=== PATIENT | female | born 1995 | race Caucasian/White ===

== ENCOUNTER 2016-11-24 16:50 | Emergency (ER) | payer MEDICAID ==
[2016-11-24 17:07] VITALS: BP 129/90
[2016-11-24] MEDS ORDERED: CLINDAMYCIN 150 MG CAPSULE PO STA (17:30)
[2016-11-24] MEDS ORDERED: HYDROcod/ACETAM 5/325 MG TABLET PO STA (17:30)
--- NOTE | 2016-11-24 17:33 | ED Physician Documentation ---
PD HPI HEENT - Stated complaint Stated Complaint: JAW PX - Chief complaint Chief Complaint: Heent - History obtained from History obtained from: Patient - History of Present Illness Timing - onset: Other (1 week increasing pain from R maxillary premolar with mild facial swelling. No fevers, no poss pregn.) Review of Systems Constitutional: denies: Fever, Chills Ears: denies: Loss of hearing, Ear pain Nose: denies: Rhinorrhea / runny nose Throat: reports: Dental pain / toothache Cardiac: denies: Chest pain / pressure, Palpitations PD PAST MEDICAL HISTORY - Past Medical History GI: Hepatitis - Past Surgical History Past Surgical History: No - Present Medications Home Medications: Ambulatory Orders Medication Instructions Recorded Confirmed Clindamycin [Cleocin] 300 mg PO Q6H 10 Days 11/24/16 HYDROcod/ACETAM 5/325 [[place] 5/325] 1 - 2 ea PO Q6H PRN #10 tablet 11/24/16 - Allergies Allergies/Adverse Reactions: Allergies Allergy/AdvReac Type Severity Reaction Status Date / Time No Known Drug Allergies Allergy Verified 04/18/13 23:47 - Social History Does the pt smoke?: Yes Smoking Status: Current every day smoker Does the pt drink ETOH?: Yes Does the pt have substance abuse?: Yes - Immunizations Immunizations are current?: Yes - POLST Patient has POLST: No PD ED PE NORMAL - Vitals Vital signs reviewed: Yes - General General: Alert and oriented X 3, No acute distress - HEENT HEENT: Other (Tender R premolar with large cavity and v mild facial swelling, no trismus or sublingual edema.) - Neck Neck: Supple, no meningeal sign, No bony TTP - Neuro Neuro: Alert and oriented X 3, Normal speech - Psych Psych: Normal mood, Normal affect Results - Vitals Vitals: Vital Signs - 24 hr 11/24/16 17:04 Temperature 36.6 C Heart Rate 95 Respiratory 20 Rate Blood Pressure 129/90 H O2 Saturation 97 Oxygen O2 Source Room air Departure - Departure Disposition: 01 Home, Self Care Clinical Impression: Dental abscess Condition: Good Record reviewed to determine appropriate education?: Yes Instructions: ED Abscess Dental Prescriptions: Clindamycin [Cleocin] 300 mg PO Q6H 10 Days HYDROcod/ACETAM 5/325 [[place] 5/325] 1 - 2 ea PO Q6H PRN #10 tablet PRN Reason: Pain Comments: It is very important that you follow up with a dentist. When it comes to dental problems like yours the emergency department can only offer you a short-term solution to your long-term problem. A couple of options for low-cost dental care include: [facility] in [place] call [phone] for an appointment Or [facility] in [place], call [phone] for an appointment Do not drink or drive while on narcotic pain medicine. Note that many narcotic pain relievers also contain tylenol/acetaminophen. Please ensure that your total dose of acetaminophen from all sources does not exceed 3 grams (3000mg) per day. You may constipated on this medication, take a stool softener such as "Colace" twice a day while you are on it. Also recommend a [id number] laxative such as senna or MiraLAX any day that you do not have a bowel movement. If you received narcotic pain medication in the emergency department, do not drive or operate machinery for the next 24 hours. Your blood pressure was elevated today on check in to the emergency department. This does not mean that you have hypertension, it is a common phenomenon to check into the emergency department and have elevated blood pressure. I recommend that you see your primary care physician within the week to have it rechecked when you're feeling better.
[2016-11-24] MEDS ORDERED: CLINDAMYCIN 150 MG CAPSULE PO ONE (17:46)
[2016-11-24] MEDS ORDERED: HYDROcod/ACETAM 5/325 MG TABLET ONE (17:46)
== END 2016-11-24 17:55 | disposition home or self-care (01) ==
LOC: ED 16:50
DX: K04.7 Periapical abscess without sinus (principal); K02.9 Dental caries, unspecified; R03.0 Elevated blood-pressure reading, without diagnosis of hypertension; F17.200 Nicotine dependence, unspecified, uncomplicated
CPT/HCPCS: 99283; A9270

== ENCOUNTER 2018-05-27 14:00 | Emergency (ER) | payer MEDICAID ==
[2018-05-27 14:08] VITALS: BP 98/68
== END 2018-05-27 14:37 | disposition left against medical advice (07) ==
LOC: ED 14:00
DX: Z53.21 Procedure and treatment not carried out due to patient leaving prior to being seen by health care provider (principal)

== ENCOUNTER 2018-05-27 14:43 | Emergency (ER) | payer MEDICAID ==
--- NOTE | 2018-05-27 14:55 | ED Physician Documentation ---
PD HPI HEENT - Stated complaint Stated Complaint: EAR PX - History obtained from History obtained from: Patient - History of Present Illness Timing - onset: How many weeks ago (1) Timing - duration: Weeks (1) Timing - details: Gradual onset, Still present, Waxing and waning Location: Left ear, Sinuses Improves: No: Medication (OTC decongestants and Dayquil.) Associated symptoms: Congestion. No: Fever, Headache, Cough Similar symptoms before: Has not had sx before Review of Systems Constitutional: denies: Fever, Chills Ears: reports: Ear pain (left). denies: Loss of hearing Nose: reports: Rhinorrhea / runny nose, Sinus pressure / pain Throat: denies: Sore throat Respiratory: denies: Cough PD PAST MEDICAL HISTORY - Past Medical History Cardiovascular: None Respiratory: None Neuro: None GI: Hepatitis HEENT: None - Past Surgical History Past Surgical History: No - Present Medications Home Medications: Ambulatory Orders Medication Instructions Recorded Confirmed Cephalexin [Keflex] 500 mg PO TID #20 capsule 05/27/18 Cetirizine [ZyrTEC] 10 mg PO DAILY #15 tablet 05/27/18 Dexamethasone [Decadron] 4 mg PO DAILY #5 tablet 05/27/18 Hydrocodone/Acetaminophen [[place] 1 each PO Q6H PRN #15 tablet 05/27/18 5-325 Tablet] - Allergies Allergies/Adverse Reactions: Allergies Allergy/AdvReac Type Severity Reaction Status Date / Time No Known Drug Allergies Allergy Verified 05/27/18 15:03 - Social History Does the pt smoke?: Yes Smoking Status: Current every day smoker Does the pt drink ETOH?: Yes Does the pt have substance abuse?: Yes - Immunizations Immunizations are current?: Yes - POLST Patient has POLST: No PD ED PE NORMAL - Vitals Vital signs reviewed: Yes - General General: Alert and oriented X 3, No acute distress, Well developed/nourished - HEENT HEENT: Pharynx benign. No: Ears normal (right is okay; left with redness and distorted landmarks. ) - Neck Neck: Supple, no meningeal sign, No adenopathy - Cardiac Cardiac: RRR, No murmur - Respiratory Respiratory: Clear bilaterally - Abdomen Abdomen: Soft, Non tender - Derm Derm: Normal color, Warm and dry, No rash - Neuro Neuro: Alert and oriented X 3, No motor deficit, Normal speech Results - Vitals Vitals: Oxygen O2 Source Room air PD MEDICAL DECISION MAKING - ED course Complexity details: considered differential, d/w patient Departure - Departure Disposition: 01 Home, Self Care Clinical Impression: Acute sinusitis Qualifiers: Sinusitis location: unspecified location Recurrence: non-recurrent Qualified Code(s): J01.90 - Acute sinusitis, unspecified Otitis media Qualifiers: Otitis media type: suppurative Chronicity: acute Laterality: left Recurrence: not specified as recurrent Spontaneous tympanic membrane rupture: with spontaneous rupture Qualified Code(s): H66.012 - Acute suppurative otitis media with spontaneous rupture of ear drum, left ear Condition: Stable Record reviewed to determine appropriate education?: Yes Instructions: ED Otitis Media Acute Adult, ED Sinusitis Abx Tx Prescriptions: Cephalexin [Keflex] 500 mg PO TID #20 capsule Cetirizine [ZyrTEC] 10 mg PO DAILY #15 tablet Dexamethasone [Decadron] 4 mg PO DAILY #5 tablet Hydrocodone/Acetaminophen [[place] 5-325 Tablet] 1 each PO Q6H PRN #15 tablet PRN Reason: Pain Comments: Stay well-hydrated. Drink lots of fluids. You can use some saline nasal spray several times a day to help clear the nasal passages and promote sinus drainage. Decadron anti-inflammatory daily for the next 5 days for reducing swelling and promoting drainage. Cetirizine to decrease fluid congestion. Cephalexin for 4 presume bacterial infection. Add Tylenol or hydrocodone if needed for pain. Recheck if not improving over the next several days to week. Discharge Date/Time: 05/27/18 15:51
[2018-05-27 15:03] VITALS: BP 113/67
[2018-05-27] MEDS ORDERED: cephALEXin 250 MG CAPSULE PO STA (15:12)
[2018-05-27] MEDS ORDERED: HYDROcod/ACETAM 5/325 MG TABLET PO STA (15:12)
[2018-05-27] MEDS ORDERED: DEXAMETHASONE 10 MG/ML VIAL PO STA (15:12)
== END 2018-05-27 15:51 | disposition home or self-care (01) ==
LOC: ED 14:43
DX: J01.90 Acute sinusitis, unspecified (principal); H66.012 Acute suppurative otitis media with spontaneous rupture of ear drum, left ear; F17.200 Nicotine dependence, unspecified, uncomplicated
CPT/HCPCS: 99283; A9270

== ENCOUNTER 2019-01-19 19:27 | Emergency (ER) | payer MEDICAID ==
[2019-01-19 19:57] LABS: BASOPHILS % (AUTO) 0.3 %; EOSINOPHILS # (AUTO) 0.1 10^3/uL (0.0-0.7); EOSINOPHILS % (AUTO) 1.1 %; HGB - HEMOGLOBIN 12.5 g/dL (12.0-16.0); LYMPHOCYTES # (AUTO) 1.8 10^3/uL (1.5-3.5); LYMPHOCYTES % (AUTO) 27.2 %; MEAN CORPUSCULAR HEMOGLOBIN 29.2 pg (27.0-31.0); MEAN CORPUSCULAR HGB CONC 33.8 g/dL (32.0-36.0); MEAN CORPUSCULAR VOLUME 86.4 fL (81.0-99.0); MEAN PLATELET VOLUME 9.5 fL (7.9-10.8); MONOCYTES # (AUTO) 0.3 10^3/uL (0.0-1.0); MONOCYTES % (AUTO) 5.3 %; NEUTROPHILS # (AUTO) 4.2 10^3/uL (1.5-6.6); NEUTROPHILS % (AUTO) 65.9 %; PLT - PLATELET COUNT 260 10^3/uL (130-450); RED BLOOD COUNT 4.28 10^6/uL (4.20-5.40); RED CELL DISTRIBUTION WIDTH 13.6 % (12.0-15.0); WHITE BLOOD COUNT 6.4 x10^3/uL (4.8-10.8)
[2019-01-19 20:15] LABS: ALBUMIN 3.7 g/dL (3.2-5.5); ALBUMIN/GLOBULIN RATIO 0.8 (1.0-2.2); BILIRUBIN,TOTAL 0.4 mg/dL (0.2-1.0); CALCIUM 9.8 mg/dL (8.5-10.3); CREATININE 0.6 mg/dL (0.4-1.0); TOTAL PROTEIN 8.2 g/dL (6.7-8.2)
[2019-01-19 20:19] LABS: MUDS CUTOFF CONCENTRATIONS CUTOFF CONC BELOW:
[2019-01-19 20:21] LABS: BILIRUBIN,URINE NEGATIVE (NEGATIVE); GLUCOSE, URINE (UA) NEGATIVE (NEGATIVE); KETONES,URINE (UA) NEGATIVE (NEGATIVE); LEUKOCYTE ESTERASE, URINE SMALL (NEGATIVE); NITRITE,URINE NEGATIVE (NEGATIVE); OCCULT BLOOD,URINE NEGATIVE (NEGATIVE); PROTEIN,URINE NEGATIVE (NEGATIVE); UROBILINOGEN,URINE 1 (NORMAL) E.U./dL (NORMAL)
[2019-01-19 20:23] LABS: CLARITY,URINE CLOUDY (CLEAR)
[2019-01-19 20:33] LABS: AMPHETAMINE SCREEN,URINE POSITIVE (NEGATIVE); BENZODIAZEPINES SCREEN, URINE NEGATIVE (NEGATIVE); COCAINE SCREEN URINE NEGATIVE (NEGATIVE); METHADONE SCREEN, URINE NEGATIVE (NEGATIVE); METHAMPHETAMINES SCREEN, URINE NEGATIVE (NEGATIVE); OPIATE SCREEN, URINE POSITIVE (NEGATIVE); OXYCODONE SCREEN, URINE NEGATIVE (NEGATIVE); PROPOXYPHENE SCREEN, URINE NEGATIVE (NEGATIVE); TRICYCLIC ANTIDEPRESSANT,URINE NEGATIVE (NEGATIVE)
[2019-01-19 20:34] LABS: BACTERIA,URINE Many /HPF (None Seen); RBC,URINE 0-5 /HPF (0-5); SQUAMOUS EPITHELIAL CELL,UR FEW Squamous (<= Few)
[2019-01-19] MEDS ORDERED: cefTRIAXone 1 GM VIAL IM STA (20:49)
[2019-01-19] MEDS ORDERED: LIDOCAINE 1% 2 ML VIAL MC ONE (20:49)
--- NOTE | 2019-01-19 20:53 | ED Physician Documentation ---
PD HPI FEMALE - Stated complaint Stated Complaint: FEMALE - Chief complaint Chief Complaint: Abd Pain - History obtained from History obtained from: Patient, Family - History of Present Illness Timing - onset: How many days ago (a few days) Timing - duration: Days Timing - details: Gradual onset, Waxing and waning Pain level max: 7 Pain level max: 2 Associated symptoms: Abdominal pain (suprapubic), Dysuria, Urinary frequency. 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), P (1) Recently seen: Not recently seen Review of Systems Ten Systems: 10 systems reviewed and negative Constitutional: denies: Fever, Chills Cardiac: denies: Chest pain / pressure Respiratory: denies: Cough : reports: Dysuria, Frequency, Hesitancy Skin: denies: Rash Musculoskeletal: denies: Neck pain, Back pain Neurologic: denies: Focal weakness, Numbness, Headache PD PAST MEDICAL HISTORY - Past Medical History Past Medical History: Yes Cardiovascular: None Respiratory: None Neuro: None GI: Hepatitis HEENT: None - Past Surgical History Past Surgical History: No - Present Medications Home Medications: Ambulatory Orders Medication Instructions Recorded Confirmed Nitrofurantoin Monohyd/M-Cryst 100 mg PO BID #10 capsule 01/19/19 [Macrobid 100 mg Capsule] Vitamin [Trinatal Rx 1] 1 each PO DAILY #30 tablet 01/19/19 - Allergies Allergies/Adverse Reactions: Allergies Allergy/AdvReac Type Severity Reaction Status Date / Time No Known Drug Allergies Allergy Verified 01/19/19 19:34 - Social History Does the pt smoke?: Yes Smoking Status: Current every day smoker Does the pt drink ETOH?: Yes Does the pt have substance abuse?: Yes - Immunizations Immunizations are current?: Yes - POLST Patient has POLST: No PD ED PE NORMAL - Vitals Vital signs reviewed: Yes - General General: Alert and oriented X 3, No acute distress, Well developed/nourished - HEENT HEENT: PERRL, Moist mucous membranes - Neck Neck: Supple, no meningeal sign - Cardiac Cardiac: RRR, Strong equal pulses - Respiratory Respiratory: No respiratory distress, Clear bilaterally - Abdomen Abdomen: Soft, Non distended, Other (TTP suprapubic without peritoneal signs. ) - Back Back: No CVA TTP, No spinal TTP - Derm Derm: Warm and dry - Extremities Extremities: No edema - Neuro Neuro: Alert and oriented X 3 - Psych Psych: Normal mood, Normal affect Results - Vitals Vitals: Vital Signs - 24 hr 01/19/19 01/19/19 19:29 20:58 Temperature 36.9 C Heart Rate 85 77 Respiratory 16 16 Rate Blood Pressure 114/62 97/67 O2 Saturation 99 98 Oxygen O2 Source Room air - Labs Labs: Laboratory Tests 01/19/19 01/19/19 01/19/19 19:50 19:50 19:50 WBC 6.4 RBC 4.28 Hgb 12.5 Hct 37.0 MCV 86.4 MCH 29.2 MCHC 33.8 RDW 13.6 Plt Count 260 MPV 9.5 Neut # (Auto) 4.2 Lymph # (Auto) 1.8 Norman # (Auto) 0.3 Eos # (Auto) 0.1 Baso # (Auto) 0.0 Absolute Nucleated RBC 0.00 Nucleated RBC % 0.0 Sodium 137 Potassium 3.7 Chloride 101 Carbon Dioxide 24 Anion Gap 12.0 BUN 11 Creatinine 0.6 Estimated GFR (MDRD) 123 Glucose 84 Calcium 9.8 Total Bilirubin 0.4 AST 21 ALT 28 Alkaline Phosphatase 65 Total Protein 8.2 Albumin 3.7 Globulin 4.5 H Albumin/Globulin Ratio 0.8 L Lipase 18 L HCG, Quant 71331.00 Urine Color Urine Clarity Urine pH Ur Specific [place] Urine Protein Urine Glucose (UA) Urine Ketones Urine Occult Blood Urine Nitrite Urine Bilirubin Urine Urobilinogen Ur Leukocyte Esterase Urine RBC Urine WBC Ur Squamous Epith Cells Urine Bacteria Ur Microscopic Review Urine Culture Comments Urine Opiates Screen Ur Oxycodone Screen Urine Methadone Screen Ur Propoxyphene Screen Ur Barbiturates Screen Ur Tricyclics Screen Ur Phencyclidine Scrn Ur Amphetamine Screen U Methamphetamines Scrn U Benzodiazepines Scrn Urine Cocaine Screen U Cannabinoids Screen Blood Type 01/19/19 01/19/19 01/19/19 19:50 19:57 19:57 WBC RBC Hgb Hct MCV MCH MCHC RDW Plt Count MPV Neut # (Auto) Lymph # (Auto) Norman # (Auto) Eos # (Auto) Baso # (Auto) Absolute Nucleated RBC Nucleated RBC % Sodium Potassium Chloride Carbon Dioxide Anion Gap BUN Creatinine Estimated GFR (MDRD) Glucose Calcium Total Bilirubin AST ALT Alkaline Phosphatase Total Protein Albumin Globulin Albumin/Globulin Ratio Lipase HCG, Quant Urine Color YELLOW Urine Clarity CLOUDY Urine pH 6.0 Ur Specific [place] 1.025 Urine Protein NEGATIVE Urine Glucose (UA) NEGATIVE Urine Ketones NEGATIVE Urine Occult Blood NEGATIVE Urine Nitrite NEGATIVE Urine Bilirubin NEGATIVE Urine Urobilinogen 1 (NORMAL) Ur Leukocyte Esterase SMALL H Urine RBC 0-5 Urine WBC >25 H Ur Squamous Epith Cells FEW Squamous Urine Bacteria Many H Ur Microscopic Review INDICATED Urine Culture Comments INDICATED Urine Opiates Screen POSITIVE H Ur Oxycodone Screen NEGATIVE Urine Methadone Screen NEGATIVE Ur Propoxyphene Screen NEGATIVE Ur Barbiturates Screen NEGATIVE Ur Tricyclics Screen NEGATIVE Ur Phencyclidine Scrn NEGATIVE Ur Amphetamine Screen POSITIVE H U Methamphetamines Scrn NEGATIVE U Benzodiazepines Scrn NEGATIVE Urine Cocaine Screen NEGATIVE U Cannabinoids Screen NEGATIVE Blood Type O NEGATIVE PD MEDICAL DECISION MAKING - ED course Complexity details: reviewed results, re-evaluated patient, considered differential, d/w patient ED course: 23-year-old female with a UTI. She is also . Bedside ultrasound reveals a intrauterine with estimated gestational age of approximately 11 weeks and 6 days. heart rate of 154 bpm. Good movement. Images shown to the patient. Given Rocephin for the UTI and will place on oral antibiotics for home. We will also prescribe vitamins and follow-up closely with OB. Patient counseled regarding signs and symptoms for which I believe and urgent re-evaluation would be necessary. Patient with good understanding of and agreement to plan and is comfortable going home at this time This document was made in part using voice recognition software. While efforts are made to proofread this document, sound alike and grammatical errors may occur. Departure - Departure Disposition: 01 Home, Self Care Clinical Impression: 12 weeks gestation of UTI (urinary tract infection) Qualifiers: Urinary tract infection type: acute cystitis Hematuria presence: without hematuria Qualified Code(s): N30.00 - Acute cystitis without hematuria Condition: Good Instructions: ED Care, ED UTI Cystitis Female, ED Preg Established Normal Sxs Follow-Up: Darrius Arnold MD [Provider Admit Priv/Credential] - Within 1 week Prescriptions: Nitrofurantoin Monohyd/M-Cryst [Macrobid 100 mg Capsule] 100 mg PO BID #10 capsule Vitamin [Trinatal Rx 1] 1 each PO DAILY #30 tablet Comments: Take all antibiotics until gone. Return if you worsen. Follow-up with obstetrics for further care. Call the clinic for an appointment. Discharge Date/Time: 01/19/19 21:09
[2019-01-19 20:59] VITALS: BP 97/67
== END 2019-01-19 21:09 | disposition home or self-care (01) ==
LOC: ED 19:27
DX: O23.11 Infections of bladder in pregnancy, first trimester (principal); F17.200 Nicotine dependence, unspecified, uncomplicated; Z3A.12 12 weeks gestation of pregnancy
CPT/HCPCS: 36415; 80053; 80306; 81001; 81003; 83690; 84702; 84703; 85025; 86900; 86901; 87086; 87181; 96372; 99283; 99284

== ENCOUNTER 2019-02-05 15:31 | Emergency (ER) | payer MEDICAID ==
[2019-02-05 15:49] VITALS: BP 109/55
== END 2019-02-05 17:04 | disposition left against medical advice (07) ==
LOC: ED 15:31
DX: Z53.21 Procedure and treatment not carried out due to patient leaving prior to being seen by health care provider (principal)

== ENCOUNTER 2019-02-06 08:00 | Outpatient (CLI) | payer MEDICAID ==
[2019-02-06 22:15] LABS: TRICHOMONAS VAGINALIS DNA POSITIVE (NEGATIVE)
== END 2019-02-06 23:59 | disposition home or self-care (01) ==
LOC: LAB.R 08:00
PROVIDERS: ATTEND Obstetrics & Gynecology
DX: Z33.1 Pregnant state, incidental (principal)
CPT/HCPCS: 87086; 87491; 87591; 87661

== ENCOUNTER 2019-02-10 14:48 | Outpatient (CLI) | payer MEDICAID ==
[2019-02-10 15:30] LABS: BASOPHILS % (AUTO) 0.5 %; EOSINOPHILS # (AUTO) 0.1 10^3/uL (0.0-0.7); EOSINOPHILS % (AUTO) 1.5 %; HGB - HEMOGLOBIN 11.4 g/dL (12.0-16.0); LYMPHOCYTES # (AUTO) 1.4 10^3/uL (1.5-3.5); LYMPHOCYTES % (AUTO) 21.5 %; MEAN CORPUSCULAR HGB CONC 33.2 g/dL (32.0-36.0); MEAN CORPUSCULAR VOLUME 90.3 fL (81.0-99.0); MEAN PLATELET VOLUME 10.2 fL (7.9-10.8); MONOCYTES # (AUTO) 0.3 10^3/uL (0.0-1.0); MONOCYTES % (AUTO) 4.2 %; NEUTROPHILS # (AUTO) 4.8 10^3/uL (1.5-6.6); NEUTROPHILS % (AUTO) 71.8 %; PLT - PLATELET COUNT 173 10^3/uL (130-450); RED CELL DISTRIBUTION WIDTH 13.5 % (12.0-15.0); WHITE BLOOD COUNT 6.7 x10^3/uL (4.8-10.8)
[2019-02-11 11:21] LABS: HEPATITIS B SURFACE ANTIGEN NON-REACTIVE (NON-REACTIVE); HEPATITIS C ANTIBODY REACTIVE (NON-REACTIVE)
[2019-02-11 14:31] LABS: HIV AG/AB 4TH GEN NON-REACTIVE (NON-REACTIVE)
[2019-02-13 12:51] LABS: HCV RNA QNT 4.88 Log IU/mL (NOT DETECTED); HCV RNA QUANT RT PCR 75100 IU/mL (NOT DETECTED)
== END 2019-02-10 14:49 | disposition home or self-care (01) ==
LOC: LAB 14:48
PROVIDERS: ATTEND Obstetrics & Gynecology
DX: O99.320 Drug use complicating pregnancy, unspecified trimester (principal); F19.10 Other psychoactive substance abuse, uncomplicated
CPT/HCPCS: 36415; 80306; 81599; 85025; 86592; 86762; 86803; 86850; 86900; 86901; 87086; 87340; 87389; 87491; 87591; 87661

== ENCOUNTER 2019-02-10 17:05 | Outpatient (CLI) | payer MEDICAID ==
[2019-02-10 17:18] LABS: MUDS CUTOFF CONCENTRATIONS CUTOFF CONC BELOW:
[2019-02-10 18:12] LABS: AMPHETAMINE SCREEN,URINE POSITIVE (NEGATIVE); BENZODIAZEPINES SCREEN, URINE NEGATIVE (NEGATIVE); COCAINE SCREEN URINE NEGATIVE (NEGATIVE); METHADONE SCREEN, URINE NEGATIVE (NEGATIVE); METHAMPHETAMINES SCREEN, URINE POSITIVE (NEGATIVE); OPIATE SCREEN, URINE POSITIVE (NEGATIVE); OXYCODONE SCREEN, URINE NEGATIVE (NEGATIVE); PROPOXYPHENE SCREEN, URINE NEGATIVE (NEGATIVE); TRICYCLIC ANTIDEPRESSANT,URINE NEGATIVE (NEGATIVE)
== END 2019-02-10 23:59 | disposition home or self-care (01) ==
LOC: LAB.R 17:05
PROVIDERS: ATTEND Obstetrics & Gynecology
DX: F19.10 Other psychoactive substance abuse, uncomplicated (principal)
CPT/HCPCS: 80306; 81599

== ENCOUNTER 2019-10-19 12:01 | Emergency (ER) | payer MEDICAID ==
[2019-10-19] MEDS ORDERED: metroNIDAZOLE 250 MG TABLET PO STA (12:24)
[2019-10-19] MEDS ORDERED: CLINDAMYCIN 150 MG CAPSULE PO STA (12:24)
--- NOTE | 2019-10-19 12:28 | ED Physician Documentation ---
History of Present Illness - Stated complaint Stated Complaint: SWOLLEN FACE/FEMALE - Chief complaint Chief Complaint: Wound - History obtained from History obtained from: Patient - Additonal information Additional information: Pt comes to the ED for dental infection and STD treatment. Pt states she has a bad tooth, and has not seen a dentist. Yesterday, she began to notice that the L side of her face was "puffy", and that today, it was much worse. Pt states her cheek hurts. No drainage into her mouth. Pt denies fevers or chills. She also states she was dx with trichomoniasis a couple of months ago, but never completed treatment. She states she feels like it is back, and would like to be treated again. She states her boyfriend also thinks he has it. No vaginal pain or itching. Mild vaginal discharge. Review of Systems Ten Systems: 10 systems reviewed and negative Constitutional: reports: Reviewed and negative Eyes: reports: Reviewed and negative Ears: reports: Reviewed and negative Nose: reports: Reviewed and negative Throat: reports: Dental pain / toothache Cardiac: reports: Reviewed and negative Respiratory: reports: Reviewed and negative GI: reports: Reviewed and negative : reports: Discharge Skin: reports: Other (Facial swelling, pain) Musculoskeletal: reports: Reviewed and negative Neurologic: reports: Reviewed and negative Psychiatric: reports: Reviewed and negative Endocrine: reports: Reviewed and negative Immunocompromised: reports: Reviewed and negative PD PAST MEDICAL HISTORY - Past Medical History Cardiovascular: None Respiratory: None Neuro: None GI: Hepatitis HEENT: None - Past Surgical History Past Surgical History: No - Present Medications Home Medications: Ambulatory Orders Medication Instructions Recorded Confirmed Clindamycin HCl [Clindamycin 300MG 300 mg PO Q6H #28 capsule 10/19/19 CAP] metroNIDAZOLE [Flagyl] 500 mg PO BID #20 tablet 10/19/19 - Allergies Allergies/Adverse Reactions: Allergies Allergy/AdvReac Type Severity Reaction Status Date / Time No Known Drug Allergies Allergy Verified 10/19/19 12:07 - Social History Does the pt smoke?: Yes Smoking Status: Current every day smoker Does the pt drink ETOH?: Yes Does the pt have substance abuse?: No - Immunizations Immunizations are current?: Yes - POLST Patient has POLST: No PD ED PE NORMAL - Vitals Vital signs reviewed: Yes - General General: Alert and oriented X 3, No acute distress - HEENT HEENT: Atraumatic, PERRL, EOMI, Moist mucous membranes, Other (Pt has poor L maxillary dentition. She has swelling of the gingival and buccal soft tissues of the area, but not of the palate. No drainage. Mild fluctuance at the apex of the buccal sulcus in the same area. No lingual edema or vocal change. ) - Neck Neck: Supple, no meningeal sign - Cardiac Cardiac: RRR, No murmur - Respiratory Respiratory: Clear bilaterally - Abdomen Abdomen: Normal bowel sounds, Soft, Non tender, Non distended - Derm Derm: Warm and dry, Other (Pt has moderate edema of her L face, involving the medial maxillary area. No induration or fluctuance externally. No extension to neck.) - Extremities Extremities: No deformity - Neuro Neuro: Alert and oriented X 3, Normal speech, Other (grossly normal otherwise) - Psych Psych: Normal mood, Normal affect Results - Vitals Vitals: Oxygen O2 Source Room air PD MEDICAL DECISION MAKING - ED course Complexity details: considered differential, d/w patient ED course: The pt was started on abx for her dental infection and flagyl for her trichomoniasis. Regarding the dental infection, the pt had some fluctance, but with significant soft tissue swelling, which made access to the fluctuant area difficult. I d/w the pt that at this point, I&D would be logistically difficult, and it is probably better to go on abx first. I have advised the pt to apply hot tea bags (as hot as she can stand without burning herself) to the involved area intraorally to help encourage drainage. She should do this at least several times a day, for at least 20 minutes, reheating bag as necessary. Most likely, the abscess will spontaneously drain. If not, use of antibiotics should help bring the swelling down, and abscess will be easier to I&D if needed. I have also instructed the pt to call the dentist's office first thing in the morning to set up a follow-up appt. Regarding the trichomoniasis, pt and boyfriend should take their treatment simultaneously and should not have intercourse until they have both completed treatment. Departure - Departure Disposition: 01 Home, Self Care Clinical Impression: Dental abscess, Trichomoniasis Condition: Stable Instructions: ED Dental Abscess Facial Cellulitis, ED Vaginitis Trichomonas Prescriptions: Clindamycin HCl [Clindamycin 300MG CAP] 300 mg PO Q6H #28 capsule metroNIDAZOLE [Flagyl] 500 mg PO BID #20 tablet Comments: As we have discussed, you should take the antibiotics for your dental Infection every day, as directed. Please do hot packing with a tea bag, as we have discussed, at least several times a day for 20 minutes at a time. Call first thing tomorrow morning to set up dental follow-up. As far as the trichomoniasis, it is not clear whether you actually of trick at this moment or not, since you have no symptoms and your boyfriend has no symptoms. However, if you want to be completely rid of the trichomonas, you should take the Flagyl/metronidazole, as prescribed, and should not have sexual relations for at least 24 hours after starting the medication. Your boyfriend and you should take the medication the same time so you are sure you each getting cleared of infection. Discharge Date/Time: 10/19/19 12:42
[2019-10-19 12:43] VITALS: BP 122/65
== END 2019-10-19 12:42 | disposition home or self-care (01) ==
LOC: ED 12:01
DX: K04.7 Periapical abscess without sinus (principal); A59.9 Trichomoniasis, unspecified; F17.200 Nicotine dependence, unspecified, uncomplicated
CPT/HCPCS: 99282; 99284; A9270

== ENCOUNTER 2020-04-18 17:43 | Emergency (ER) | payer MEDICAID ==
[2020-04-18] MEDS ORDERED: KETOROLAC 30 MG/ML VIAL IVP STA (17:56)
[2020-04-18] MEDS ORDERED: CLINDAMYCIN 600 MG/50 ML 50 ML IV ONE (17:56)
[2020-04-18] MEDS ORDERED: DEXAMETHASONE 10 MG/ML VIAL IVP STA (17:56)
--- NOTE | 2020-04-18 17:59 | ED Physician Documentation ---
PD HPI HEENT - Stated complaint Stated Complaint: MOUTH INFECTION - Chief complaint Chief Complaint: Heent - History obtained from History obtained from: Patient - Additional information Additional information: 25-year-old woman has had worsening dental pain from a right mandibular source for the last week with mild facial swelling and 4 days of trismus. No fevers. No possibility of . She called a few dentist office to try to get an but was unsuccessful. Review of Systems Constitutional: denies: Fever, Chills Nose: denies: Rhinorrhea / runny nose, Congestion Throat: denies: Sore throat Cardiac: denies: Chest pain / pressure, Palpitations Respiratory: denies: Dyspnea, Cough PD PAST MEDICAL HISTORY - Past Medical History Past Medical History: Yes Cardiovascular: None Respiratory: None Neuro: None GI: Hepatitis HEENT: None - Past Surgical History Past Surgical History: No - Present Medications Home Medications: Ambulatory Orders Medication Instructions Recorded Confirmed Hydrocodone/Acetaminophen 1 - 2 tab PO Q6H PRN #15 tablet 04/18/20 [Hydrocodone-Acetamin 5-325 mg] clindamycin HCL [Cleocin HCl] 300 mg PO Q6H #40 capsule 04/18/20 - Allergies Allergies/Adverse Reactions: Allergies Allergy/AdvReac Type Severity Reaction Status Date / Time No Known Drug Allergies Allergy Verified 04/18/20 17:50 - Social History Does the pt smoke?: Yes Smoking Status: Current every day smoker Does the pt drink ETOH?: Yes Does the pt have substance abuse?: No - Immunizations Immunizations are current?: Yes - POLST Patient has POLST: No PD ED PE NORMAL - Vitals Vital signs reviewed: Yes - General General: Alert and oriented X 3, No acute distress - HEENT HEENT: Other (She has generally poor dentition, trismus with about 1 cm of opening between the incisors. No sublingual edema. No obvious gingival abscess but mild facial swelling over the angle of the jaw.) - Neck Neck: Supple, no meningeal sign, No bony TTP - Derm Derm: No rash - Neuro Neuro: Alert and oriented X 3, Normal speech Results - Vitals Vitals: Vital Signs - 24 hr 04/18/20 17:48 Temperature 37 C Heart Rate 103 H Respiratory 18 Rate Blood Pressure 107/69 O2 Saturation 100 Oxygen O2 Source Room air Procedures - General procedure General procedure: She was difficult for IV access, the nurse tried and failed. I placed a long 22-gauge IV in the right deep brachial vein after ChloraPrep using real-time ultrasound guidance which flushed and arie well. PD MEDICAL DECISION MAKING - ED course ED course: 25-year-old woman with a significant dental infection with trismus, no other current signs of Buddy's. Received IV clindamycin in the ER as well as pain control. I put in an online referral to the local oral med maxillofacial surgeon for urgent follow-up. Departure - Departure Disposition: Home, Self Care Clinical Impression: Dental abscess Condition: Good Record reviewed to determine appropriate education?: Yes Instructions: ED Dental Abscess Facial Cellulitis Follow-Up: WILLIAM CORTEZ [Physician No Access] - Tomorrow Prescriptions: clindamycin HCL [Cleocin HCl] 300 mg PO Q6H #40 capsule Hydrocodone/Acetaminophen [Hydrocodone-Acetamin 5-325 mg] 1 - 2 tab PO Q6H PRN #15 tablet PRN Reason: Pain Comments: I put in a referral to Dr. William Cortez, he has an oral maxillofacial surgeon in [place]. You may hear from him tomorrow but I would also call his office in the morning noting that you were in the ER today with a dental abscess and facial cellulitis. Return for new or worsening symptoms. Do not drink or drive while taking narcotic pain medication.
[2020-04-18 19:40] VITALS: BP 105/57
== END 2020-04-18 19:54 | disposition home or self-care (01) ==
LOC: ED 17:43
DX: K04.7 Periapical abscess without sinus (principal); L03.211 Cellulitis of face; F17.200 Nicotine dependence, unspecified, uncomplicated
CPT/HCPCS: 96361; 96374; 96375; 99284

== ENCOUNTER 2020-05-17 19:45 | Emergency (ER) | payer MEDICAID ==
[2020-05-17 20:18] LABS: BILIRUBIN,URINE NEGATIVE (NEGATIVE); GLUCOSE, URINE (UA) NEGATIVE (NEGATIVE); KETONES,URINE (UA) NEGATIVE (NEGATIVE); LEUKOCYTE ESTERASE, URINE NEGATIVE (NEGATIVE); NITRITE,URINE NEGATIVE (NEGATIVE); OCCULT BLOOD,URINE LARGE (NEGATIVE); PH,URINE 5.5 PH (5.0-7.5); PROTEIN,URINE NEGATIVE (NEGATIVE); UROBILINOGEN,URINE 0.2 (NORMAL) E.U./dL (NORMAL)
[2020-05-17 20:19] LABS: CLARITY,URINE HAZY (CLEAR)
[2020-05-17 20:26] LABS: HCG UR QUAL NEGATIVE
[2020-05-17 20:30] LABS: RBC,URINE TNTC /HPF (0-5); SQUAMOUS EPITHELIAL CELL,UR NONE SEEN (<= Few)
[2020-05-17 20:31] LABS: BACTERIA,URINE Few /HPF (None Seen)
--- NOTE | 2020-05-17 20:34 | ED Physician Documentation ---
History of Present Illness - Stated complaint Stated Complaint: FEMALE - Chief complaint Chief Complaint: Abd Pain - History obtained from History obtained from: Patient - History of Present Illness Timing: Today Pain level max: 0 Pain level now: 0 - Additonal information Additional information: 25-year-old female presents to the emergency department stating she is concerned that she might be miscarrying. She has not had a menstrual period since having her daughter about 8 months ago. Today she states she passed a large clot. Has not taken a test. Currently feels normal. No cramping. Nothing makes it better or worse. Review of Systems Constitutional: denies: Fever, Chills Respiratory: denies: Cough GI: denies: Abdominal Pain, Vomiting, Diarrhea Skin: denies: Rash Musculoskeletal: denies: Neck pain, Back pain PD PAST MEDICAL HISTORY - Past Medical History Cardiovascular: None Respiratory: None Neuro: None GI: Hepatitis HEENT: None - Past Surgical History Past Surgical History: No - Present Medications Home Medications: Ambulatory Orders Medication Instructions Recorded Confirmed No Known Home Medications 05/17/20 05/17/20 - Allergies Allergies/Adverse Reactions: Allergies Allergy/AdvReac Type Severity Reaction Status Date / Time No Known Drug Allergies Allergy Verified 05/17/20 19:50 - Social History Does the pt smoke?: Yes Smoking Status: Current every day smoker Does the pt drink ETOH?: No Does the pt have substance abuse?: Yes Substance Use and Type: Heroin - Immunizations Immunizations are current?: Yes - POLST Patient has POLST: No PD ED PE NORMAL - Vitals Vital signs reviewed: Yes - General General: Alert and oriented X 3, No acute distress - HEENT HEENT: Moist mucous membranes - Neck Neck: Supple, no meningeal sign - Cardiac Cardiac: RRR - Respiratory Respiratory: No respiratory distress, Clear bilaterally - Abdomen Abdomen: Soft, Non tender, Non distended - Derm Derm: Warm and dry - Neuro Neuro: Alert and oriented X 3 Results - Vitals Vitals: Vital Signs - 24 hr 05/17/20 19:50 Temperature 36.6 C Heart Rate 96 Respiratory 18 Rate Blood Pressure 134/84 H O2 Saturation 98 Oxygen O2 Source Room air - Labs Labs: Laboratory Tests 05/17/20 20:05 Urine Color YELLOW Urine Clarity HAZY Urine pH 5.5 Ur Specific [place] >=1.030 H Urine Protein NEGATIVE Urine Glucose (UA) NEGATIVE Urine Ketones NEGATIVE Urine Occult Blood LARGE H Urine Nitrite NEGATIVE Urine Bilirubin NEGATIVE Urine Urobilinogen 0.2 (NORMAL) Ur Leukocyte Esterase NEGATIVE Urine RBC TNTC H Urine WBC 0-3 Ur Squamous Epith Cells NONE SEEN Urine Bacteria Few Ur Microscopic Review INDICATED Urine Culture Comments NOT INDICATED Urine HCG, Qual NEGATIVE PD MEDICAL DECISION MAKING - ED course Complexity details: reviewed results, considered differential, d/w patient ED course: States that she is only having minimal bleeding now. hCG is negative. No randi dence of miscarriage. Patient counseled regarding signs and symptoms for which I believe and urgent re-evaluation would be necessary. Patient with good understanding of and agreement to plan and is comfortable going home at this time This document was made in part using voice recognition software. While efforts are made to proofread this document, sound alike and grammatical errors may occur. Departure - Departure Disposition: 01 Home, Self Care Clinical Impression: Dysfunctional uterine bleeding Condition: Good Instructions: ED Bleed Irregular Vaginal Follow-Up: Your,doctor in 1 week [Other] Comments: Your test is negative today. Follow-up with your doctor as needed for further care. Return if you worsen
[2020-05-17 20:48] VITALS: BP 116/74
== END 2020-05-17 20:48 | disposition home or self-care (01) ==
LOC: ED 19:45
DX: N93.8 Other specified abnormal uterine and vaginal bleeding (principal); Z32.02 Encounter for pregnancy test, result negative; F17.200 Nicotine dependence, unspecified, uncomplicated
CPT/HCPCS: 81001; 81003; 81025; 87086; 99283; 99284

== ENCOUNTER 2021-02-21 18:37 | Emergency (ER) | payer MEDICAID ==
[2021-02-21 18:44] VITALS: BP 119/64
== END 2021-02-21 19:37 | disposition left against medical advice (07) ==
LOC: ED 18:37
DX: Z53.21 Procedure and treatment not carried out due to patient leaving prior to being seen by health care provider (principal)
CPT/HCPCS: 87491; 87591; 87661; 87801

== ENCOUNTER 2021-08-08 12:34 | Emergency (ER) | payer MEDICAID ==
[2021-08-08 12:53] VITALS: BP 121/70
--- NOTE | 2021-08-08 12:58 | ED Physician Documentation ---
PD HPI HEENT - Stated complaint Stated Complaint: FACE SWELLING - Chief complaint Chief Complaint: Heent - History obtained from History obtained from: Patient - History of Present Illness Timing - onset: How many days ago (few) Timing - duration: Days (few) Timing - details: Abrupt onset, Still present (increasing over just few days right upper teeth/cheek area.) Location: Mouth Worsens: Swalllowing, Other (palpation) Associated symptoms: Facial swelling. 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, IVDU of heroin, and inhaled fentanyl most recently.) Recently seen: Not recently seen Review of Systems Constitutional: denies: Fever, Chills Nose: denies: Rhinorrhea / runny nose, Congestion Throat: denies: Sore throat Respiratory: denies: Cough Skin: denies: Rash PD PAST MEDICAL HISTORY - Past Medical History Cardiovascular: None Respiratory: None Neuro: None GI: Hepatitis HEENT: None - Past Surgical History Past Surgical History: No - Present Medications Home Medications: Ambulatory Orders Medication Instructions Recorded Confirmed Buprenorphine HCl/Naloxone HCl 1 each SL BID 4 Days #8 film 08/08/21 [Suboxone 8 mg-2 mg Sl Film] Chlorhexidine Gluconate [Peridex] 15 ml MM TID #118 ml 08/08/21 Clindamycin [Cleocin] 150 mg PO QID 6 Days #24 cap 08/08/21 Naproxen 250 mg PO TID 7 Days #20 tablet 08/08/21 - Allergies Allergies/Adverse Reactions: Allergies Allergy/AdvReac Type Severity Reaction Status Date / Time No Known Drug Allergies Allergy Verified 08/08/21 12:50 - Living Situation Living Situation: reports: With spouse/s.o. Living Arrangement: reports: At home - Social History Does the pt smoke?: Yes Smoking Status: Current every day smoker Does the pt drink ETOH?: No Does the pt have substance abuse?: Yes Substance Use and Type: Heroin (and recently inhaled fentanyl) - Immunizations Immunizations are current?: Yes - POLST Patient has POLST: No PD ED PE NORMAL - Vitals Vital signs reviewed: Yes - General General: Alert and oriented X 3, Well developed/nourished, Other (right cheek with swelling and tenderness. right upper gumline with focal swelling but not fluctuance. Significant dental decay with teeth in area of infection being decayed to gumline. COnsider needing oral surgeon more than dentist. ) - HEENT HEENT: No: Dentition benign - Neck Neck: Supple, no meningeal sign, No adenopathy - Cardiac Cardiac: RRR, No murmur - Respiratory Respiratory: Clear bilaterally - Derm Derm: Normal color, Warm and dry - Neuro Neuro: Alert and oriented X 3, No motor deficit, Normal speech - Psych Psych: Normal affect (pleasant and interacts well. Somewhat anxious and pale, c /w early withdrawal. ) Results - Vitals Vitals: Vital Signs - 24 hr 08/08/21 12:50 Temperature 36.5 C Heart Rate 100 Respiratory 16 Rate Blood Pressure 121/70 O2 Saturation 99 Oxygen O2 Source Room air PD MEDICAL DECISION MAKING - ED course Complexity details: considered differential, d/w patient ED course: we discussed Naloxone NS and was going to order it for her, but she says she has 2 of them in car. She is having some mild early withdrawal currently, last use Fentanyl 1 1/2 days ago. WE did not have oral buprenorphine, just IM/IV and patient did not want injection so that she did not have the feeling of "a needle" as she is trying to stay away from IVDU. Declines info re: drug rehab. She is accepting of oral suboxone for 3-4 days to help with acute withdrawal. She is going to a methadone clinic in [place] in next few days for treatment there and they can continue the MAT. WIll treat her dental infection with abx and NSAIDs. Shared decision of no narcotic meds. Departure - Departure Disposition: 01 Home, Self Care Clinical Impression: Dental abscess, Facial swelling, Opioid abuse Condition: Stable Instructions: ED Abscess Dental Follow-Up: William Ferrari DDS [Provider Admit Priv/Credential] - [facility] [Provider Group] Prescriptions: Clindamycin [Cleocin] 150 mg PO QID 6 Days #24 cap Naproxen 250 mg PO TID 7 Days #20 tablet Chlorhexidine Gluconate [Peridex] 15 ml MM TID #118 ml Buprenorphine HCl/Naloxone HCl [Suboxone 8 mg-2 mg Sl Film] 1 each SL BID 4 Days #8 film Comments: For the dental infection, rinse with mouthwash or water 3-4 times daily and then rinse with chlorhexidine antiseptic rinse and be sure to swish it around the gums. You can then spit it out. Clindamycin antibiotic as directed for the next 6 days for the infection. Naproxen anti-inflammatory for inflammation and swelling and pain with food as directed. Use ondansetron if needed for nausea. Tylenol if needed for pain. Continue to not use any opiates. It is good that you already have your naloxone in case. We can do short-term Suboxone for the next several days to try to ease withdrawal symptoms. Follow-up with the primary care or if you can get into the drug treatment clinic. Regarding the dental infection, it does relate to poor dentition and those will need further care. You can try the [facility] for dental care. I also provided the name of an oral surgeon in [place] and see if they accept your insurance etc. Call for an appointment. I transmitted your prescriptions to the [facility] pharmacy. Discharge Date/Time: 08/08/21 13:49
[2021-08-08] MEDS ORDERED: NAPROXEN 250 MG TABLET PO STA (13:13)
[2021-08-08] MEDS ORDERED: CLINDAMYCIN 150 MG CAPSULE PO STA (13:13)
[2021-08-08] MEDS ORDERED: ACETAMINOPHEN 325 MG TABLET PO STA (13:16)
== END 2021-08-08 13:49 | disposition home or self-care (01) ==
LOC: ED 12:34
DX: F11.13 Opioid abuse with withdrawal (principal); K04.7 Periapical abscess without sinus; F17.200 Nicotine dependence, unspecified, uncomplicated
CPT/HCPCS: 99283; 99284; A9270

== ENCOUNTER 2023-01-20 13:28 | Emergency (ER) | payer MEDICAID ==
[2023-01-20 14:02] VITALS: BP 105/70
--- NOTE | 2023-01-20 17:38 | ED Physician Documentation ---
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 : None HEENT: None Psych: None Musculoskeletal: None Derm: None - Past Surgical History Past Surgical History: No - Present Medications Home Medications: Ambulatory Orders Medication Instructions Recorded Confirmed Buprenorphine HCl/Naloxone HCl 1 each SL BID 4 Days #8 film 08/08/21 [Suboxone 8 mg-2 mg Sl Film] Chlorhexidine Gluconate [Peridex] 15 ml MM TID #118 ml 08/08/21 Clindamycin [Cleocin] 150 mg PO QID 6 Days #24 cap 08/08/21 Naproxen 250 mg PO TID 7 Days #20 tablet 08/08/21 - Allergies Allergies/Adverse Reactions: Allergies Allergy/AdvReac Type Severity Reaction Status Date / Time No Known Drug Allergies Allergy Verified 08/08/21 12:50 - Social History Does the pt smoke?: Yes Smoking Status: Current every day smoker Does the pt drink ETOH?: No Does the pt have substance abuse?: Yes - Immunizations Immunizations are current?: Yes - POLST Patient has POLST: No Results - Vitals Vitals: Vital Signs - 24 hr 01/20/23 13:47 Temperature 37.0 C Heart Rate 119 H Respiratory 20 Rate Blood Pressure 105/70 O2 Saturation 98 Oxygen O2 Source Room air PD Medical Decision Making - ED course ED course: Patient was not seen by me or any other provider. She left before she was put in a room. Departure - Departure Disposition: ED Left Without Being Seen Clinical Impression: Procedure and treatment not carried out due to patient leaving prior to being seen by health care provider Forms: PCP List Discharge Date/Time: 01/20/23 14:35
== END 2023-01-20 14:35 | disposition left against medical advice (07) ==
LOC: ED 13:28
DX: Z53.21 Procedure and treatment not carried out due to patient leaving prior to being seen by health care provider (principal)

== ENCOUNTER 2023-12-08 08:00 | Outpatient (CLI) | payer MEDICAID ==
[2023-12-08 23:04] LABS: BACTERIAL VAGINOSIS DNA NEGATIVE (NEGATIVE); CANDIDA GLABRATA DNA NEGATIVE (NEGATIVE); CANDIDA GROUP DNA NEGATIVE (NEGATIVE); CANDIDA KRUSEI DNA NEGATIVE (NEGATIVE); TRICHOMONAS VAGINALIS DNA NEGATIVE (NEGATIVE)
[2023-12-09 01:09] LABS: CHLAMYDIA TRACHOMATIS DNA NEGATIVE (NEGATIVE); NEISSERIA GONORRHOEAE DNA NEGATIVE (NEGATIVE); TRICHOMONAS VAGINALIS DNA NEGATIVE (NEGATIVE)
== END 2023-12-08 23:59 | disposition home or self-care (01) ==
LOC: LAB.R 08:00
PROVIDERS: ATTEND Physician Assistant Medical
DX: N39.0 Urinary tract infection, site not specified (principal); N89.8 Other specified noninflammatory disorders of vagina
CPT/HCPCS: 81514; 87086; 87181; 87491; 87591; 87661